=== PATIENT | male | born 1965 | race African-American/Black ===

== ENCOUNTER 2018-03-22 11:57 | Inpatient (IN) ==
[2018-03-22] MEDS ORDERED: MAGNESIUM SULF RIDER 4 GM in PREMIX 1 EACH IV PRN (12:36)
[2018-03-22] MEDS ORDERED: MAGNESIUM SULF RIDER 2 GM in PREMIX 1 EACH IV PRN (12:36)
[2018-03-22] MEDS ORDERED: DIAZEPAM 5 MG TABLET PO ONE (12:36)
[2018-03-22] MEDS ORDERED: diphenhydrAMINE CAP 25 MG CAPSULE PO ONE (12:36)
[2018-03-22] MEDS ORDERED: POTASSIUM CHLORIDE RIDER 10 MEQ in PREMIX 1 EACH IV PRN (12:36)
[2018-03-22] MEDS ORDERED: ZALEPLON 5 MG CAPSULE PO PRN (12:36)
[2018-03-22 13:05] LABS: Basophils % 0.6 % (0.0-0.8); Eosinophils # 0.4 10*3/uL (0.0-0.87); Eosinophils % 5.8 % (0.00-10.9); Hematocrit 40.4 VOL% (42.0-52.0); Hemoglobin 13.3 GM/DL (14.0-18.0); Immature Granulocytes % 0.2 %; Immature Granulocytes Absolute 0.01 #; Lymphocytes # 2.9 10*3/uL (1.4-4.0); Lymphocytes % 45.7 % (21.2-54.2); Mean Corpuscular HGB Conc 32.9 GM/DL (32-36); Mean Corpuscular Hemoglobin 29 PG (27-34); Mean Platelet Volume 10.9 FL (9.6-12.0); Monocytes # 0.4 10*3/uL (0.11-0.8); Monocytes % 5.7 % (1.7-12.7); Neutrophils # 2.7 10*3/uL (1.4-7.4); Platelet Count 237 T/CUMM (130-400); Red Blood Count 4.59 MC/CUMM (3.8-5.5); Red Cell Distribution Width 13.7 % (9.3-17.3); White Blood Count 6.4 T/CUMM (4-12)
[2018-03-22 13:46] LABS: Blood Urea Nitrogen 14 MG/DL (7-18); Calcium 9.2 MG/DL (8.5-10.1); Glucose 101 MG/DL (74-106); Osmolality,Calculated 277.5 MOS/KG (273-304); Potassium 3.9 MMOL/L (3.5-5.1); Sodium 139 MMOL/L (136-145)
[2018-03-22 13:52] LABS: Troponin I 0.283 NG/ML (0.00-0.045)
[2018-03-22] MEDS: ASPIRIN CHEW 81 MG TABLET PO SCH (14:38)
[2018-03-22] MEDS: GABAPENTIN 400 MG CAPSULE PO SCH ×2 (14:38→20:37)
[2018-03-22] MEDS: CARVEDILOL 12.5 MG TABLET PO SCH ×2 (14:38→20:37)
[2018-03-22] MEDS: ENOXAPARIN 80 MG/0.8 ML SYRINGE SUBCUT SCH (14:38)
[2018-03-22] MEDS: traZODone 50 MG TABLET PO SCH (20:37)
[2018-03-22] MEDS: CILOSTAZOL 100 MG TABLET PO SCH (20:37)
[2018-03-22] MEDS: ROSUVASTATIN 20 MG TABLET PO SCH (20:37)
[2018-03-23] MEDS: ENOXAPARIN 80 MG/0.8 ML SYRINGE SUBCUT SCH ×2 (01:36→13:27)
[2018-03-23] MEDS ORDERED: diphenhydrAMINE CAP 25 MG CAPSULE PO ONE (06:00)
[2018-03-23] MEDS ORDERED: DIAZEPAM 5 MG TABLET PO ONE (06:00)
[2018-03-23] MEDS ORDERED: LINACLOTIDE 145 MCG CAPSULE PO SCH (07:30)
[2018-03-23] MEDS: ASPIRIN CHEW 81 MG TABLET PO SCH (09:06)
[2018-03-23] MEDS: CARVEDILOL 12.5 MG TABLET PO SCH ×2 (09:06→21:03)
[2018-03-23] MEDS ORDERED: HEPARIN/NACL 0.9% 2 UNITS/ML 1,000 ML IV ONE (10:36)
[2018-03-23] MEDS ORDERED: LIDOCAINE 1% 20 ML VIAL ONE (11:19)
[2018-03-23] MEDS ORDERED: NITROGLYCERIN DRIP 50 MG/250 ML BOTTLE IV ONE (11:19)
[2018-03-23] MEDS ORDERED: MIDAZOLAM 2 MG/2 ML VIAL ONE (11:20)
[2018-03-23] MEDS ORDERED: VERAPAMIL 5 MG/2 ML VIAL ONE (11:20)
[2018-03-23] MEDS ORDERED: HYDROmorphone 2 MG/1 ML VIAL ONE (11:20)
[2018-03-23] MEDS ORDERED: ENOXAPARIN 30 MG/0.3 ML SYRINGE ONE (11:34)
[2018-03-23] MEDS ORDERED: BIVALIRUDIN 250 MG VIAL IV ONE (11:42)
[2018-03-23] MEDS ORDERED: TICAGRELOR 90 MG TABLET ONE (11:49)
[2018-03-23] MEDS ORDERED: SODIUM CHLORIDE 0.9% 1,000 ML IV SCH (12:30)
[2018-03-23] MEDS: GABAPENTIN 400 MG CAPSULE PO SCH ×3 (13:22→21:03)
[2018-03-23] MEDS: LOSARTAN 50 MG TABLET PO SCH (13:23)
[2018-03-23] MEDS: BIVALIRUDIN 250 MG in SODIUM CHLORIDE 0.9% 50 ML IV SCH ×2 (13:29→17:25)
[2018-03-23] MEDS: CILOSTAZOL 100 MG TABLET PO SCH ×2 (13:30→21:03)
[2018-03-23] MEDS: traZODone 50 MG TABLET PO SCH (21:03)
[2018-03-23] MEDS: ROSUVASTATIN 20 MG TABLET PO SCH (21:03)
[2018-03-23] MEDS: TICAGRELOR 90 MG TABLET PO SCH (21:03)
[2018-03-24] MEDS: ENOXAPARIN 80 MG/0.8 ML SYRINGE SUBCUT SCH (02:19)
[2018-03-24] MEDS: BIVALIRUDIN 250 MG in SODIUM CHLORIDE 0.9% 50 ML IV SCH ×2 (02:26→08:12)
[2018-03-24 02:34] LABS: Basophils % 0.4 % (0.0-0.8); Eosinophils # 0.4 10*3/uL (0.0-0.87); Eosinophils % 5.3 % (0.00-10.9); Hemoglobin 12.5 GM/DL (14.0-18.0); Immature Granulocytes % 0.1 %; Immature Granulocytes Absolute 0.01 #; Lymphocytes # 3.9 10*3/uL (1.4-4.0); Lymphocytes % 51.9 % (21.2-54.2); Mean Corpuscular HGB Conc 33.8 GM/DL (32-36); Mean Corpuscular Hemoglobin 30 PG (27-34); Mean Corpuscular Volume 87.7 FL (87-102); Mean Platelet Volume 10.7 FL (9.6-12.0); Monocytes # 0.4 10*3/uL (0.11-0.8); Monocytes % 5.4 % (1.7-12.7); Neutrophils # 2.8 10*3/uL (1.4-7.4); Neutrophils % 36.9 % (38.7-73.9); Platelet Count 223 T/CUMM (130-400); Red Blood Count 4.22 MC/CUMM (3.8-5.5); Red Cell Distribution Width 13.5 % (9.3-17.3); White Blood Count 7.5 T/CUMM (4-12)
[2018-03-24 02:49] LABS: Calcium 8.6 MG/DL (8.5-10.1); Osmolality,Calculated 282.3 MOS/KG (273-304); Potassium 3.5 MMOL/L (3.5-5.1)
[2018-03-24 02:53] LABS: Blood Urea Nitrogen 13 MG/DL (7-18); Calcium 8.4 MG/DL (8.5-10.1); Glucose 129 MG/DL (74-106); Osmolality,Calculated 280.4 MOS/KG (273-304); Potassium 3.5 MMOL/L (3.5-5.1); Sodium 140 MMOL/L (136-145)
[2018-03-24 02:54] LABS: Troponin I 0.204 NG/ML (0.00-0.045)
[2018-03-24 02:56] LABS: Eosinophils 3 % (0-10); Lymphocytes 49 % (20-55); Segmented Neutrophils 38 % (50-85)
[2018-03-24 02:57] LABS: Platelet Estimate Normal
[2018-03-24 02:58] LABS: Total Cells Counted 100
[2018-03-24 07:32] VITALS: BP 135/78
[2018-03-24] MEDS: ASPIRIN CHEW 81 MG TABLET PO SCH (08:10)
[2018-03-24] MEDS: LOSARTAN 50 MG TABLET PO SCH (08:10)
[2018-03-24] MEDS: CILOSTAZOL 100 MG TABLET PO SCH (08:10)
[2018-03-24] MEDS: CARVEDILOL 12.5 MG TABLET PO SCH (08:10)
[2018-03-24] MEDS: GABAPENTIN 400 MG CAPSULE PO SCH (08:10)
[2018-03-24] MEDS: TICAGRELOR 90 MG TABLET PO SCH (08:18)
== END 2018-03-24 10:13 | disposition home or self-care (01) | DRG 175 ==
LOC: N.TELENOUT 11:57 → INTOOBSV 11:57 → N.TELES 11:57 → EDSTATUS 03-23 12:42
PROVIDERS: ADMIT Internal Medicine Cardiovascular Disease; ATTEND Internal Medicine Cardiovascular Disease

== ENCOUNTER 2019-04-03 02:38 | Observation (INO) ==
[2019-04-03 03:27] LABS: Basophils % 0.4 % (0.0-0.8); Eosinophils # 0.2 10*3/uL (0.0-0.87); Eosinophils % 1.8 % (0.00-10.9); Hematocrit 42.8 VOL% (42.0-52.0); Hemoglobin 14.3 GM/DL (14.0-18.0); Immature Granulocytes % 0.1 %; Immature Granulocytes Absolute 0.01 #; Lymphocytes % 47.4 % (21.2-54.2); Mean Corpuscular HGB Conc 33.4 GM/DL (32-36); Mean Corpuscular Volume 91.3 FL (87-102); Mean Platelet Volume 11.3 FL (9.6-12.0); Monocytes % 4.7 % (1.7-12.7); Neutrophils % 45.6 % (38.7-73.9); Platelet Count 246 T/CUMM (130-400); Red Blood Count 4.69 MC/CUMM (3.8-5.5); Red Cell Distribution Width 13.7 % (9.3-17.3); White Blood Count 8.5 T/CUMM (4-12)
[2019-04-03 03:37] LABS: Apearance,Urine CLEAR (Clear); Bacteria,Urine Occasional /HPF (Few); Bilirubin,Urine Negative (Negative); Blood, Urine Negative (Negative); Glucose,Urine (UA) Negative (Negative); Ketones,Urine Negative (Negative); Mucus,Urine Occasional /LPF (Occasional); Nitrite,Urine Negative (Negative); Protein,Urine Negative; RBC,Urine 2 /HPF (0-4); Urine Color Straw (Yellow); Urine Specific Gravity 1.004 (1.001-1.035); Urine Urobilinogen < 2.0 EU/DL (0.2-1.0); WBC,Urine 1 /HPF (0-6)
[2019-04-03 03:50] LABS: Alanine Aminotransferase 33 U/L (16-61); Albumin 4.1 G/DL (3.4-5.0); Alkaline Phosphatase 90 U/L (45-117); Amylase 102 U/L (25-115); Aspartate Amino Transferase 16 U/L (0-37); Bilirubin,Total < 0.39 MG/DL (0.2-1.0); Blood Urea Nitrogen 10 MG/DL (7-18); Calcium 8.6 MG/DL (8.5-10.1); Estimated Glom Filtration Rate 114 ML/MIN; Glucose 106 MG/DL (74-106); Osmolality,Calculated 284.8 MOS/KG (273-304); Total Protein 7.8 G/DL (6.4-8.3)
[2019-04-03] MEDS ORDERED: THIAMINE INJ 100 MG, FOLIC ACID INJ 1 MG, MAGNESIUM SULF INJ 2 GM, MULTIVITAMIN INJ 10 ... IV ONE (05:04)
[2019-04-03] MEDS ORDERED: ONDANSETRON 4 MG/2 ML VIAL IV PRN (05:14)
[2019-04-03] MEDS: PANTOPRAZOLE 40 MG VIAL IV SCH (08:26)
[2019-04-03] MEDS: ACETAMINOPHEN 325 MG TABLET PO PRN ×2 (12:07→20:25)
[2019-04-03] MEDS: DEXTROSE 5% NACL 0.45% 1,000 ML IV SCH ×2 (16:43→16:54)
[2019-04-04] MEDS: DEXTROSE 5% NACL 0.45% 1,000 ML IV SCH (00:52)
[2019-04-04 07:54] VITALS: BP 127/76
[2019-04-04] MEDS: PANTOPRAZOLE 40 MG VIAL IV SCH (09:14)
[2019-04-04] MEDS: ACETAMINOPHEN 325 MG TABLET PO PRN (10:40)
== END 2019-04-04 11:48 | disposition home or self-care (01) ==
LOC: EDUNIT# → EDBD → N.ED 02:38 → N.EDINP 02:38 → N.3E 05:34
PROVIDERS: ADMIT Student in an Organized Health Care Education/Training Program; ATTEND Student in an Organized Health Care Education/Training Program